=== PATIENT | female | born 2000 | race Hispanic/Latino ===

== ENCOUNTER 2022-06-18 10:12 | Outpatient (CLI) | payer SELFPAY | END 2022-06-18 10:13 | disposition home or self-care (01) | LOC: CSHLAB 10:12 | PROVIDERS: ATTEND Advanced Practice Midwife | DX: Z20.822 Contact with and (suspected) exposure to COVID-19 (principal) | CPT/HCPCS: 87811 ==

== ENCOUNTER 2022-06-21 19:30 | Inpatient (IN) | payer OTHER ==
[2022-06-22 02:21] VITALS: BMI 48.2
[2022-06-22] MEDS ORDERED: NS w/ Oxytocin 30 units 500 ML ONE (03:52)
[2022-06-22] MEDS ORDERED: Penicillin G Potassium 5 MILL.UNITS VIAL ONE (03:52)
[2022-06-22] MEDS ORDERED: Penicillin G Potassium 5 MILL.UNITS in Sodium Chloride 0.9% 100 ML IVPB SCH ×2 (04:00→06:30)
[2022-06-22 04:23] LABS: ALT (SGPT) 17 U/L (8-55); AST (SGOT) 32 U/L (5-34); Albumin 3.2 g/dL (3.5-5.0); Alkaline Phosphatase 209 U/L (40-100); Anion Gap 15 mmol/L (10-20); BUN (Urea Nitrogen) 11 mg/dL (7.0-18.7); Bilirubin, Total 0.6 mg/dL (0.2-1.2); Calc. Creatinine Clearance 245 mL/min (70-130); Calcium 9.2 mg/dL (7.8-10.44); Carbon Dioxide 21 mmol/L (22-29); Chloride 108 mmol/L (98-107); Estimated GFR 115; Globulin 2.4 g/dL (2.4-3.5); Glucose 100 mg/dL (70-105); Potassium 4.5 mmol/L (3.5-5.1); Protein, Total 5.6 g/dL (6.0-8.3); Sodium 139 mmol/L (136-145)
[2022-06-22 04:25] LABS: Hemoglobin 10.9 g/dL (12.0-15.5); Mean Corpuscular HGB CONC 34.2 g/dL (32.0-36.0); Mean Corpuscular Hemoglobin 27.1 pg (27.0-33.0); Mean Corpuscular Volume 79.4 fl (81.6-98.3); Mean Platelet Volume 11.9 fl (7.4-10.4); Platelet Count 192 10x3/uL (150-450); RBC Distribution Width 16.6 % (11.5-14.5); Red Blood Cell (RBC) Count 4.02 10x6/uL (3.90-5.03); White Blood Cell (WBC) Count 6.8 10x3/uL (3.5-10.5)
[2022-06-22 04:41] LABS: Hep B Surf Ag Non-Reactive S/CO (NonReactive); Syphilis Antibody Nonreactive (Nonreactive); Syphilis Antibody Index 0.03 S/CO (<1.00 Non-Reactive)
[2022-06-22 04:46] LABS: HBSAg Index 0.17 S/CO (0-0.99)
[2022-06-22] MEDS ORDERED: Magnesium Sulfate 20 gm/500 ml 20 GM/500 ML BAG ONE (05:27)
[2022-06-22] MEDS ORDERED: Labetalol HCl 100 MG/20 ML VIAL SLOW IVP PRN (05:39)
[2022-06-22] MEDS ORDERED: Calcium Gluc 4.6 MEQ/10 ML (100 MG/ML) SLOW IVP PRN (05:39)
[2022-06-22] MEDS ORDERED: Lorazepam 2 MG/ML VIAL SLOW IVP PRN (05:39)
[2022-06-22] MEDS ORDERED: Magnesium Sulfate 20 gm/500 ml 20 GM/500 ML BAG IVPB SCH (05:45)
[2022-06-22] MEDS: Pen G 2.5 MILL.UNITS/50 ML BAG IVPB SCH ×4 (07:52→20:10)
[2022-06-22] MEDS ORDERED: ePHEDrine Sulfate 50 MG/10 ML VIAL ONE (08:00)
[2022-06-22] MEDS ORDERED: Bupivacaine/Epinephrine 0.25% 30 ML VIAL ONE (08:00)
[2022-06-22] MEDS: hydrALAZINE 20 MG/ML VIAL SLOW IVP PRN ×2 (08:05→08:31)
[2022-06-22] MEDS ORDERED: Fentanyl 2 mcg/Bup 0.1% Cadd 100 ML ONE (08:43)
[2022-06-22] MEDS: Labetalol HCl 100 MG/20 ML VIAL SLOW IVP PRN ×2 (08:49→17:03)
[2022-06-22] MEDS ORDERED: Moisturizing Cream (Eucerin) 113 GM JAR TOP PRN (10:46)
[2022-06-22] MEDS ORDERED: Naloxone HCl 0.4 mg/ml Vial IVP PRN ×2 (10:46)
[2022-06-22] MEDS ORDERED: Promethazine HCl 25 MG/ML VIAL IM PRN (10:46)
[2022-06-22] MEDS ORDERED: diphenhydrAMINE 50 MG/ML VIAL IVP PRN (10:46)
[2022-06-22] MEDS ORDERED: Ondansetron PF 4 MG/2 ML Vial IVP PRN (10:46)
[2022-06-22] MEDS ORDERED: Lactated Ringer's 500 ML IV PRN (10:46)
[2022-06-22] MEDS ORDERED: Communication Order-Pharmacy FS SCH (11:00)
[2022-06-22] MEDS ORDERED: Fentanyl 2 mcg/Bupivacaine 0.1% Cassette 100 ML EPIDURAL SCH (11:00)
[2022-06-22] MEDS: ePHEDrine Sulfate 50 MG/10 ML VIAL SLOW IVP PRN ×3 (11:05→12:19)
[2022-06-22] MEDS: Acetaminophen 325 MG TAB PO PRN ×2 (14:48→20:10)
[2022-06-22] MEDS ORDERED: Labetalol HCl 100 MG/20 ML VIAL SLOW IVP SCH (22:00)
[2022-06-23] MEDS ORDERED: hydrALAZINE 20 MG/ML VIAL ONE (01:11)
[2022-06-23] MEDS: Pen G 2.5 MILL.UNITS/50 ML BAG IVPB SCH ×2 (01:15→05:58)
[2022-06-23] MEDS ORDERED: hydrALAZINE 20 MG/ML VIAL SLOW IVP SCH (01:15)
[2022-06-23] MEDS ORDERED: NIFEdipine 10 MG CAP PO PRN ×2 (01:26)
[2022-06-23] MEDS ORDERED: hydrALAZINE 20 MG/ML VIAL SLOW IVP PRN ×2 (01:26→11:09)
[2022-06-23] MEDS ORDERED: Labetalol HCl 100 MG/20 ML VIAL SLOW IVP PRN ×3 (01:26)
[2022-06-23] MEDS ORDERED: Calcium Gluc 4.6 MEQ/10 ML (100 MG/ML) SLOW IVP PRN (01:26)
[2022-06-23] MEDS ORDERED: Lorazepam 2 MG/ML VIAL SLOW IVP PRN (01:26)
[2022-06-23] MEDS ORDERED: NS w/ Oxytocin 30 units 500 ML ONE (04:00)
[2022-06-23] MEDS ORDERED: Bicitra 30 ML UDCUP PO PRN (08:14)
[2022-06-23] MEDS ORDERED: Famotidine/PF 20 mg/2ml Vial SLOW IVP PRN (08:14)
[2022-06-23] MEDS ORDERED: Famotidine/PF 20 mg/2ml Vial ONE (08:15)
[2022-06-23] MEDS ORDERED: Azithromycin 500 MG in Sodium Chloride 0.9% 250 ML 250 ML IVPB SCH (08:15)
[2022-06-23] MEDS ORDERED: Azithromycin 500 MG VIAL ONE (08:16)
[2022-06-23] MEDS ORDERED: Tranexamic Acid 1,000 MG/10 ML VIAL ONE ×3 (08:18→15:10)
[2022-06-23] MEDS ORDERED: Misoprostol 200 MCG TAB ONE ×2 (08:18→15:10)
[2022-06-23] MEDS ORDERED: Carboprost 250 MCG/ML AMP ONE (08:19)
[2022-06-23] MEDS ORDERED: CEFAZOLIN 3 GM, Admixture Fee 1 EACH in Sodium Chloride 0.9% 100 ML IVPB SCH (09:00)
[2022-06-23] MEDS ORDERED: Lidocaine 2% PF 100 mg/5 ml Syringe ONE (09:09)
[2022-06-23] MEDS ORDERED: Bupivacaine PF 0.5% 30 ML VIAL ONE (09:09)
[2022-06-23] MEDS ORDERED: Lidocaine 2% MPF 10 ML AMP (For Epidural Use) ONE (09:10)
[2022-06-23] MEDS ORDERED: Fentanyl 100 MCG/2 ML VIAL ONE ×2 (09:33→10:09)
[2022-06-23] MEDS ORDERED: Oxytocin 10 UNITS/ML VIAL ONE (09:34)
[2022-06-23] MEDS ORDERED: Ondansetron PF 4 MG/2 ML Vial ONE (09:58)
[2022-06-23] MEDS ORDERED: Dexamethasone 4 mg/ml Vial ONE (09:58)
[2022-06-23] MEDS ORDERED: Ketorolac Tromethamine 30 MG/ML VIAL ONE (09:58)
[2022-06-23] MEDS ORDERED: Morphine PF 10 MG/10 ML VIAL ONE (10:10)
[2022-06-23] MEDS ORDERED: Phenylephrine 10 MG/ML VIAL ONE (10:50)
[2022-06-23] MEDS ORDERED: Ondansetron HCl/PF 4 MG/2 ML Vial IVP PRN (11:06)
[2022-06-23] MEDS ORDERED: Naloxone HCl 0.4 mg/ml Vial IV PRN (11:06)
[2022-06-23] MEDS ORDERED: Promethazine HCl 25 MG/ML VIAL IM PRN ×2 (11:06→11:09)
[2022-06-23] MEDS ORDERED: diphenhydrAMINE 50 MG/ML VIAL IVP PRN (11:06)
[2022-06-23] MEDS ORDERED: Ondansetron PF 4 MG/2 ML Vial IVP PRN ×2 (11:06→11:09)
[2022-06-23] MEDS ORDERED: Moisturizing Cream (Eucerin) 113 GM JAR TOP PRN (11:06)
[2022-06-23] MEDS ORDERED: Fentanyl 100 MCG/2 ML VIAL SLOW IVP PRN (11:06)
[2022-06-23] MEDS ORDERED: Naloxone HCl 0.4 mg/ml Vial IVP PRN ×2 (11:06)
[2022-06-23] MEDS ORDERED: Promethazine HCl 25 MG SUPP PR PRN (11:06)
[2022-06-23] MEDS ORDERED: Meperidine HCl/PF 25 MG/ML VIAL SLOW IVP PRN (11:06)
[2022-06-23] MEDS ORDERED: diphenhydrAMINE 25 MG CAP PO PRN (11:09)
[2022-06-23] MEDS ORDERED: Lanolin Ointment 7 GM TUBE TOP PRN (11:09)
[2022-06-23] MEDS ORDERED: NS w/ Oxytocin 30 units 500 ML IV SCH (11:15)
[2022-06-23] MEDS ORDERED: Communication Order-Pharmacy FS SCH (11:15)
[2022-06-23] MEDS: Magnesium Sulfate 20 gm/500 ml 20 GM/500 ML BAG IVPB SCH (13:27)
[2022-06-23] MEDS ORDERED: Misoprostol 200 MCG TAB PR PRN (13:37)
[2022-06-23] MEDS ORDERED: Tranexamic Acid 1,000 MG/10 ML VIAL IVP SCH ×2 (14:15→15:15)
[2022-06-23] MEDS: Misoprostol 200 MCG TAB PO SCH ×3 (15:22→23:20)
[2022-06-23] MEDS ORDERED: Carboprost 250 MCG/ML AMP IM SCH (15:45)
[2022-06-23] MEDS ORDERED: Lactated Ringer's 500 ML IV SCH (15:45)
[2022-06-23 15:46] LABS: Hemoglobin 8.5 g/dL (12.0-15.5); Mean Corpuscular HGB CONC 33.2 g/dL (32.0-36.0); Mean Corpuscular Volume 81.3 fl (81.6-98.3); Mean Platelet Volume 12.1 fl (7.4-10.4); Platelet Count 199 10x3/uL (150-450); RBC Distribution Width 17.7 % (11.5-14.5); Red Blood Cell (RBC) Count 3.15 10x6/uL (3.90-5.03); White Blood Cell (WBC) Count 11.7 10x3/uL (3.5-10.5)
[2022-06-23] MEDS ORDERED: Diphenoxylate HCl/Atropine Tablet PO PRN (15:48)
[2022-06-23 15:55] LABS: D-Dimer Test 4.27 mg/L FEU (0.19-0.50); INR-International Normal Ratio 0.9; PTT 23.9 sec (22.0-33.0); Prothrombin Time 9.6 sec (9.5-12.1)
[2022-06-23] MEDS: Labetalol HCl 100 MG/20 ML VIAL SLOW IVP PRN ×2 (16:39→17:39)
[2022-06-23] MEDS ORDERED: cefTRIAXone\\ROCEPHIN 1 GM in Sodium Chloride 0.9% 100 ML IVPB SCH (19:45)
[2022-06-23] MEDS ORDERED: NIFEdipine XL 30 MG TAB PO SCH (19:45)
[2022-06-23] MEDS ORDERED: HYDROcodone/Acetaminophen 5/325 mg Tablet PO PRN ×2 (23:15)
[2022-06-23] MEDS ORDERED: Zolpidem Tartrate 5 MG TAB PO PRN (23:15)
[2022-06-23] MEDS ORDERED: Meperidine HCl/PF 25 MG/ML VIAL IM PRN (23:15)
[2022-06-24] MEDS: Ketorolac Tromethamine 30 MG/ML VIAL IVP SCH ×3 (06:19→12:10)
[2022-06-24 07:07] LABS: Hemoglobin 8.7 g/dL (12.0-15.5); Mean Corpuscular HGB CONC 35.7 g/dL (32.0-36.0); Mean Corpuscular Hemoglobin 28.5 pg (27.0-33.0); Mean Platelet Volume 12.2 fl (7.4-10.4); Platelet Count 144 10x3/uL (150-450); RBC Distribution Width 16.9 % (11.5-14.5); Red Blood Cell (RBC) Count 3.05 10x6/uL (3.90-5.03); White Blood Cell (WBC) Count 11.5 10x3/uL (3.5-10.5)
[2022-06-24] MEDS: Pen G 2.5 MILL.UNITS/50 ML BAG IVPB SCH ×3 (08:46→12:08)
[2022-06-24] MEDS: Docusate 100 MG CAP PO SCH ×3 (08:46→21:10)
[2022-06-24] MEDS: Magnesium Sulfate 20 gm/500 ml 20 GM/500 ML BAG IVPB SCH (08:51)
[2022-06-24] MEDS: NIFEdipine XL 30 MG TAB PO SCH ×2 (08:51→21:32)
[2022-06-24] MEDS: Prenatal Vitamin 1 TAB PO SCH (09:12)
[2022-06-24] MEDS ORDERED: Boostrix 0.5 ML (Tdap) VIAL IM ONE (11:09)
[2022-06-24] MEDS: Acetaminophen 325 MG TAB PO PRN (13:59)
[2022-06-24] MEDS ORDERED: NIFEdipine XL 30 MG TAB PO SCH (21:00)
[2022-06-24] MEDS: Ibuprofen 800 MG TAB PO SCH (21:10)
[2022-06-24] MEDS: Simethicone Chewable 80 MG TAB PO PRN (21:10)
[2022-06-25 05:02] LABS: #Eosinphils 0.1 10x3/uL (0.0-0.5); #Monocytes 0.8 10x3/uL (0.0-1.1); #Neutrophils 4.9 10x3/uL (1.5-8.4); %Basophils 0.1 % (0.0-2.0); %Eosinophils 0.6 % (0.0-6.0); %Lymphocytes 30.3 % (18.0-47.0); %Monocytes 9.1 % (0.0-10.0); %Neutrophils 59.2 % (40.0-75.0); Hemoglobin 8.1 g/dL (12.0-15.5); Mean Corpuscular HGB CONC 34.6 g/dL (32.0-36.0); Mean Corpuscular Hemoglobin 29.1 pg (27.0-33.0); Mean Corpuscular Volume 84.2 fl (81.6-98.3); Mean Platelet Volume 11.6 fl (7.4-10.4); Platelet Count 154 10x3/uL (150-450); RBC Distribution Width 17.4 % (11.5-14.5); Red Blood Cell (RBC) Count 2.78 10x6/uL (3.90-5.03); White Blood Cell (WBC) Count 8.2 10x3/uL (3.5-10.5)
[2022-06-25] MEDS: Simethicone Chewable 80 MG TAB PO PRN (05:02)
[2022-06-25] MEDS: Ibuprofen 800 MG TAB PO SCH ×3 (05:03→21:25)
[2022-06-25] MEDS: Prenatal Vitamin 1 TAB PO SCH (08:36)
[2022-06-25] MEDS: Docusate 100 MG CAP PO SCH ×2 (08:37→21:25)
[2022-06-25] MEDS: Acetaminophen 325 MG TAB PO PRN ×2 (08:37→17:41)
[2022-06-25] MEDS: NIFEdipine XL 30 MG TAB PO SCH (08:40)
[2022-06-26] MEDS: Ibuprofen 800 MG TAB PO SCH (05:12)
[2022-06-26 07:19] VITALS: BP 125/83; TEMP 98.6
[2022-06-26] MEDS: Docusate 100 MG CAP PO SCH (08:37)
[2022-06-26] MEDS: Prenatal Vitamin 1 TAB PO SCH (08:37)
[2022-06-26] MEDS ORDERED: NIFEdipine XL 30 MG TAB PO SCH (09:00)
== END 2022-06-26 13:20 | disposition home or self-care (01) | DRG 787 ==
LOC: CSHLD 06-22 01:35 → CSHPP 06-24 12:01
PROVIDERS: ADMIT Obstetrics & Gynecology; ATTEND Obstetrics & Gynecology
PROC: 3E033VJ Introduction of Other Hormone into Peripheral Vein, Percutaneous Approach (ICD-10-PCS; principal; 2022-06-22)
PROC: 10H07YZ Insertion of Other Device into Products of Conception, Via Natural or Artificial Opening (ICD-10-PCS; 2022-06-22)
PROC: 10907ZC Drainage of Amniotic Fluid, Therapeutic from Products of Conception, Via Natural or Artificial Opening (ICD-10-PCS; 2022-06-22)
PROC: 10D00Z1 Extraction of Products of Conception, Low, Open Approach (ICD-10-PCS; 2022-06-23)
PROC: 30233N1 Transfusion of Nonautologous Red Blood Cells into Peripheral Vein, Percutaneous Approach (ICD-10-PCS; 2022-06-23)
DX: O24.420 Gestational diabetes mellitus in childbirth, diet controlled (principal); O72.1 Other immediate postpartum hemorrhage; O99.355 Diseases of the nervous system complicating the puerperium; O14.14 Severe pre-eclampsia complicating childbirth; O62.1 Secondary uterine inertia; O99.214 Obesity complicating childbirth; O36.63X0 Maternal care for excessive fetal growth, third trimester, not applicable or unspecified; Z91.19 Patient's noncompliance with other medical treatment and regimen; E66.01 Morbid (severe) obesity due to excess calories; Z37.0 Single live birth; Z3A.40 40 weeks gestation of pregnancy; O99.824 Streptococcus B carrier state complicating childbirth; O77.0 Labor and delivery complicated by meconium in amniotic fluid; O32.8XX0 Maternal care for other malpresentation of fetus, not applicable or unspecified; G47.30 Sleep apnea, unspecified; D64.9 Anemia, unspecified; O90.81 Anemia of the puerperium
CPT/HCPCS: 36415; 36416; 36430; 51702; 80053; 82947; 85025; 85027; 85049; 85300; 85362; 85379; 85384; 85610; 85730; 86780; 86850; 86900; 86901; 87340; J0360; J0456; J0690; J0696; J1100; J1885; J2001; J2274; J2370; J2405; J2540; J2590; J3010; J3475; J3490; J7050; P9016; S0020; S0028

== ENCOUNTER 2024-04-23 10:49 | Inpatient (IN) | payer OTHER ==
[2024-04-23] MEDS ORDERED: hydrALAZINE 20 MG/ML VIAL SLOW IVP PRN ×3 (11:37→23:32)
[2024-04-23 11:41] VITALS: BMI 49.0
[2024-04-23 12:16] LABS: Hematocrit 31.5 % (34.9-44.5); Mean Corpuscular HGB CONC 34.9 g/dL (32.0-36.0); Mean Corpuscular Hemoglobin 29.2 pg (27.0-33.0); Mean Corpuscular Volume 83.6 fL (81.6-98.3); Mean Platelet Volume 11.9 fL (7.4-10.4); Platelet Count 209 10x3/uL (150-450); RBC Distribution Width 13.6 % (11.5-14.5); Red Blood Cell (RBC) Count 3.77 10x6/uL (3.90-5.03)
[2024-04-23 12:55] LABS: Syphilis Antibody Nonreactive (Nonreactive); Syphilis Antibody Index 0.03 S/CO (<1.00 Non-Reactive)
[2024-04-23 12:56] LABS: HBsAg Index 0.18 S/CO (0-0.99); Hep B Surf Ag - L&D Non-Reactive S/CO (NonReactive)
[2024-04-23 13:22] LABS: Glucose 109 mg/dL (70-105)
[2024-04-23 13:48] LABS: HIV (1/2) Antibody/Antigen Non-Reactive (NonReactive); HIV 1/2 INDEX 0.09 S/CO (<1.00)
[2024-04-23] MEDS ORDERED: fentaNYL 50 mcg/mL 1 mL Vial SLOW IVP PRN (14:53)
[2024-04-23] MEDS ORDERED: Moisturizing Cream (Eucerin) 113 GM JAR TOP PRN (14:53)
[2024-04-23] MEDS ORDERED: Ondansetron PF 4 MG/2 ML Vial IVP PRN ×3 (14:53→23:32)
[2024-04-23] MEDS ORDERED: Promethazine HCl 25 MG/ML VIAL IM PRN ×2 (14:53→23:32)
[2024-04-23] MEDS ORDERED: Naloxone HCl 0.4 mg/ml Vial IVP PRN ×2 (14:53)
[2024-04-23] MEDS ORDERED: Morphine 4 MG/ML VIAL SLOW IVP PRN (14:53)
[2024-04-23] MEDS ORDERED: Naloxone HCl 0.4 mg/ml Vial IV PRN (14:53)
[2024-04-23] MEDS ORDERED: diphenhydrAMINE 50 MG/ML VIAL IVP PRN (14:53)
[2024-04-23] MEDS ORDERED: Meperidine HCl/PF 25 MG (1 mL) VIAL SLOW IVP PRN (14:53)
[2024-04-23] MEDS ORDERED: Ketorolac Tromethamine 30 MG (1 mL) VIAL IVP SCH (15:00)
[2024-04-23] MEDS ORDERED: Communication Order-Pharmacy FS SCH (15:00)
[2024-04-23] MEDS ORDERED: Famotidine/PF 20 mg/2ml Vial SLOW IVP PRN (16:30)
[2024-04-23] MEDS ORDERED: Bicitra 30 ML UDCUP PO PRN (16:30)
[2024-04-23] MEDS: CEFAZOLIN 3 GM, Admixture Fee 1 EACH in Sodium Chloride 0.9% 100 ML IVPB SCH (19:01)
[2024-04-23] MEDS: Metoclopramide HCl 10 MG (2 mL) VIAL IVP SCH (22:12)
[2024-04-23] MEDS: Ondansetron PF 4 MG/2 ML Vial ONE (22:40)
[2024-04-23] MEDS ORDERED: Tranexamic Acid 1,000 MG/10 ML VIAL IVP PRN (23:32)
[2024-04-23] MEDS ORDERED: Bisacodyl 10 MG SUPP PR PRN (23:32)
[2024-04-23] MEDS ORDERED: Methylergonovine 0.2 MG/ML VIAL IM PRN (23:32)
[2024-04-23] MEDS ORDERED: Lanolin Ointment 7 GM TUBE TOP PRN (23:32)
[2024-04-23] MEDS ORDERED: Misoprostol 200 MCG TAB PR PRN (23:32)
[2024-04-23] MEDS ORDERED: Simethicone Chewable 80 MG TAB PO PRN (23:32)
[2024-04-23] MEDS ORDERED: Oxytocin 30 units/NS 500 ML 500 ML IV SCH (23:59)
[2024-04-24] MEDS: Docusate 100 MG CAP PO SCH ×2 (00:15→08:27)
[2024-04-24] MEDS: Ferrous Sulfate 325 MG TAB PO SCH ×2 (00:15→08:44)
[2024-04-24] MEDS: metroNIDAZOLE 500 MG in Premix 1 BAG IVPB SCH (00:15)
[2024-04-24 03:33] LABS: Hematocrit 34.8 % (34.9-44.5); Hemoglobin 11.8 g/dL (12.0-15.5); Mean Corpuscular HGB CONC 33.9 g/dL (32.0-36.0); Mean Corpuscular Hemoglobin 28.4 pg (27.0-33.0); Mean Corpuscular Volume 83.7 fL (81.6-98.3); Mean Platelet Volume 11.8 fL (7.4-10.4); Platelet Count 213 10x3/uL (150-450); RBC Distribution Width 13.9 % (11.5-14.5); Red Blood Cell (RBC) Count 4.16 10x6/uL (3.90-5.03); White Blood Cell (WBC) Count 9.5 10x3/uL (3.5-10.5)
[2024-04-24] MEDS: Ketorolac Tromethamine 30 MG (1 mL) VIAL IVP PRN (06:20)
[2024-04-24] MEDS: Lactated Ringer's 500 ML IV SCH (07:25)
[2024-04-24] MEDS: Carboprost 250 MCG/ML AMP ONE (07:26)
[2024-04-24] MEDS: Methylergonovine 0.2 MG/ML VIAL ONE (07:26)
[2024-04-24] MEDS: Morphine PF 10 MG/10 ML VIAL ONE (07:26)
[2024-04-24] MEDS: PHENYLEPHRINE-NS 100 MCG/ML 10 ML SYRINGE ONE (07:26)
[2024-04-24] MEDS: Oxytocin 10 UNITS/ML VIAL ONE ×2 (07:26→07:27)
[2024-04-24] MEDS: Dexamethasone 4 mg/ml Vial ONE (07:26)
[2024-04-24] MEDS: Ketorolac Tromethamine 30 MG (1 mL) VIAL ONE (07:27)
[2024-04-24] MEDS: Boostrix 0.5 ML (Tdap) VIAL (>/=7 yrs of age) IM ONE (07:27)
[2024-04-24] MEDS: Misoprostol 200 MCG TAB ONE (07:27)
[2024-04-24] MEDS: Tranexamic Acid 1,000 MG/10 ML VIAL ONE (07:27)
[2024-04-24] MEDS: Acetaminophen 500 MG TAB PO SCH (07:28)
[2024-04-24] MEDS: Prenatal Vitamin 1 TAB PO SCH (08:27)
[2024-04-24] MEDS: Enoxaparin 40 MG (0.4 mL) SYRINGE SC SCH (08:49)
[2024-04-24] MEDS ORDERED: Enoxaparin 30 MG (0.3 mL) SYRINGE SC SCH (09:00)
[2024-04-24] MEDS: Ibuprofen 800 MG TAB PO SCH (21:31)
[2024-04-25 09:38] VITALS: BP 112/72; TEMP 98.4
== END 2024-04-25 11:30 | disposition home or self-care (01) | DRG 787 ==
LOC: CSHLD/OP 10:49 → CSHLD 14:38 → CSHPED 04-24
PROVIDERS: ADMIT Student in an Organized Health Care Education/Training Program; ATTEND Student in an Organized Health Care Education/Training Program
PROC: 10D00Z1 Extraction of Products of Conception, Low, Open Approach (ICD-10-PCS; principal; 2024-04-23)
DX: O76 Abnormality in fetal heart rate and rhythm complicating labor and delivery (principal); O10.92 Unspecified pre-existing hypertension complicating childbirth; O24.429 Gestational diabetes mellitus in childbirth, unspecified control; O34.211 Maternal care for low transverse scar from previous cesarean delivery; Z3A.38 38 weeks gestation of pregnancy; Z37.0 Single live birth; O99.214 Obesity complicating childbirth; E66.9 Obesity, unspecified; O99.284 Endocrine, nutritional and metabolic diseases complicating childbirth; E03.9 Hypothyroidism, unspecified
CPT/HCPCS: 36415; 36416; 51702; 76819; 82947; 85027; 86780; 86850; 86900; 86901; 87340; 87389; 99285; J1100; J1650; J1885; J2274; J2405; J2590; J2765; J3490